=== PATIENT | male | born 1965 | race Caucasian/White ===

== ENCOUNTER 2019-03-27 18:14 | Emergency (ER) | payer BC, OTHER ==
[2019-03-27 19:25] VITALS: BP 160/101
[2019-03-27 19:49] LABS: BASO # 0.1 x10^3/uL (0.0-0.2); BASO % 1 % (0-3); EOS # 0.4 x10^3/uL (0.0-0.7); EOS % 5 % (0-3); HEMATOCRIT 44.2 % (39.0-53.0); HEMOGLOBIN 15.3 g/dL (13.0-17.5); LYMPH % 24 % (24-48); MEAN CORPUSCULAR HEMOGLOBIN 32 pg (25-35); MEAN CORPUSCULAR HGB CONC 35 g/dL (31-37); MEAN CORPUSCULAR VOLUME 92 fL (79-100); MONO # 0.7 x10^3/uL (0.0-1.1); MONO % 8 % (0-9); NEUT # 5.4 x10^3uL (1.8-7.7); NEUT % 63 % (31-73); PLATELET COUNT 208 x10^3/uL (140-400); RED BLOOD COUNT 4.79 x10^6/uL (4.30-5.70); WHITE BLOOD COUNT 8.6 x10^3/uL (4.0-11.0)
[2019-03-27 19:56] LABS: ALBUMIN 4.2 g/dL (3.4-5.0); ALBUMIN/GLOBULIN RATIO 1.1 (1.0-1.7); CALCIUM 9.7 mg/dL (8.5-10.1); CREATININE 1.2 mg/dL (0.7-1.3); GFR 63.6; POTASSIUM 3.5 mmol/L (3.5-5.1); TOTAL BILIRUBIN 0.4 mg/dL (0.2-1.0); TOTAL PROTEIN 7.9 g/dL (6.4-8.2)
--- NOTE | 2019-03-27 20:04 | PHYS DOC ---
Past History Past Medical History: High Cholesterol, Hypertension, Other Past Surgical History: No Surgical History Alcohol Use: None Drug Use: None Adult General Chief Complaint Chief Complaint: HYPERTENSION HPI HPI Patient is a 53-year-old male who presents tonight secondary to elevated blood pressure. Patient came home this evening felt a little nauseous so decided to check his blood pressure and it was elevated at 200 systolic. Patient denies any chest pain shortness of breath. He has had some nausea. He states he does occasionally have indigestion. He states his entire face felt numb as well. Patient does report that he had a full cardiac workup including what sounds like a cardiac CT as well as a stress test within the last few months all of which was normal. He is on blood pressure medicine that he states he takes regularly. His blood pressure medicine is metoprolol 50 mg once daily. At the time of this history patient has had no symptoms.[] Review of Systems Review of Systems Constitutional: Denies fever or chills [] Eyes: Denies change in visual acuity, redness, or eye pain [] HENT: Denies nasal congestion or sore throat [] Respiratory: Denies cough or shortness of breath [] Cardiovascular: No additional information not addressed in HPI [] GI: Occasional indigestion[] : Denies dysuria or hematuria [] Musculoskeletal: Denies back pain or joint pain [] Integument: Denies rash or skin lesions [] Neurologic: Facial numbness that has resolved[] Endocrine: Denies polyuria or polydipsia [] All other systems were reviewed and found to be within normal limits, except as documented in this note. Allergies Allergies Allergies Coded Allergies Type Severity Reaction Last Updated Verified No Known Drug Allergies 03/27/19 No Physical Exam Physical Exam Constitutional: Well developed, well nourished, no acute distress, non-toxic appearance. [] HENT: Normocephalic, atraumatic, bilateral external ears normal, oropharynx moist, no oral exudates, nose normal. [] Eyes: PERRLA, EOMI, conjunctiva normal, no discharge. [] Neck: Normal range of motion, no tenderness, supple, no stridor. [] Cardiovascular:Heart rate regular rhythm, no murmur [] Lungs & Thorax: Bilateral breath sounds clear to auscultation [] Abdomen: Bowel sounds normal, soft, no tenderness, no masses, no pulsatile masses. [] Skin: Warm, dry, no erythema, no rash. [] Back: No tenderness, no CVA tenderness. [] Extremities: No tenderness, no cyanosis, no clubbing, ROM intact, no edema. [] Neurologic: Alert and oriented X 3, normal motor function, normal sensory function, no focal deficits noted. [] Psychologic: Anxious[] Current Patient Data Vital Signs Vital Signs Date Time Temp Pulse Resp B/P (MAP) Pulse Ox O2 Delivery O2 Flow Rate FiO2 03/27/19 19:25 61 16 160/101 (120) 98 Room Air 03/27/19 18:28 98.1 Lab Results Laboratory Tests Test 03/27/19 19:18 White Blood Count 8.6 x10^3/uL (4.0-11.0) Red Blood Count 4.79 x10^6/uL (4.30-5.70) Hemoglobin 15.3 g/dL (13.0-17.5) Hematocrit 44.2 % (39.0-53.0) Mean Corpuscular Volume 92 fL (79-100) Mean Corpuscular Hemoglobin 32 pg (25-35) Mean Corpuscular Hemoglobin Concent 35 g/dL (31-37) Red Cell Distribution Width 13.0 % (11.5-14.5) Platelet Count 208 x10^3/uL (140-400) Neutrophils (%) (Auto) 63 % (31-73) Lymphocytes (%) (Auto) 24 % (24-48) Monocytes (%) (Auto) 8 % (0-9) Eosinophils (%) (Auto) 5 % (0-3) H Basophils (%) (Auto) 1 % (0-3) Neutrophils # (Auto) 5.4 x10^3uL (1.8-7.7) Lymphocytes # (Auto) 2.0 x10^3/uL (1.0-4.8) Monocytes # (Auto) 0.7 x10^3/uL (0.0-1.1) Eosinophils # (Auto) 0.4 x10^3/uL (0.0-0.7) Basophils # (Auto) 0.1 x10^3/uL (0.0-0.2) Sodium Level 136 mmol/L (136-145) Potassium Level 3.5 mmol/L (3.5-5.1) Chloride Level 98 mmol/L (98-107) Carbon Dioxide Level 25 mmol/L (21-32) Anion Gap 13 (6-14) Blood Urea Nitrogen 11 mg/dL (8-26) Creatinine 1.2 mg/dL (0.7-1.3) Estimated GFR (Cockcroft-Gault) 63.6 BUN/Creatinine Ratio 9 (6-20) Glucose Level 93 mg/dL (70-99) Calcium Level 9.7 mg/dL (8.5-10.1) Total Bilirubin 0.4 mg/dL (0.2-1.0) Aspartate Amino Transferase (AST) 42 U/L (15-37) H Alanine Aminotransferase (ALT) 55 U/L (16-63) Alkaline Phosphatase 59 U/L (46-116) Total Protein 7.9 g/dL (6.4-8.2) Albumin 4.2 g/dL (3.4-5.0) Albumin/Globulin Ratio 1.1 (1.0-1.7) Lipase 106 U/L (73-393) EKG EKG [EKG: Normal sinus rhythm rate of [address]-T changes] Radiology/Procedures Radiology/Procedures [] Course & Med Decision Making Course & Med Decision Making Pertinent Labs and Imaging studies reviewed. (See chart for details) [ED course: Evaluation reveals a 53-year-old male who presents with anxiety secondary to elevated blood pressure. Had a long discussion with the patient about home blood pressure readings and discussed when and how to take them. While his blood pressure is elevated tonight there is no indication to treat it. I do not believe any of his symptoms on anginal equivalent. I did discuss with the patient that he may need a different blood pressure regimen but that would not be something we would get into tonight.] Dragon Disclaimer Dragon Disclaimer This electronic medical record was generated, in whole or in part, using a voice recognition dictation system. Departure Departure: Impression: Primary Impression: Anxiety disorder due to known physiological condition Disposition: 01 HOME, SELF-CARE Condition: STABLE Referrals: [facility] (PCP) Patient Instructions: Hypertension Additional Instructions: Follow with her primary care physician this week for recheck. Return to the emergency department with any new or concerning symptoms MAEVE ALEXANDER DO Mar 27, 2019 20:04
--- NOTE | 2019-03-28 07:58 | EKG ---
[address] [address] Test Date: 2019-03-27 Test Time: 18:34:10 Pat Name: HÉCTOR STOKES Department: Room: Gender: M Chief Of Hospital Medicine: [place] : 1965 Requested By: MAEVE ALEXANDER Order Number: [id number] Reading MD: Measurements Intervals [place] Rate: 60 P: 45 [place]: 182 QRS: 0 QRSD: 104 T: 18 QT: 430 QTc: 430 Interpretive Statements SINUS RHYTHM LEFTWARD AXIS OTHERWISE NORMAL ECG RI6.01 No previous ECG available for comparison
== END 2019-03-27 20:16 | disposition home or self-care (01) ==
LOC: ER 18:14
DX: F41.8 Other specified anxiety disorders (principal); I10 Essential (primary) hypertension; E78.00 Pure hypercholesterolemia, unspecified
CPT/HCPCS: 36415; 80053; 83690; 84484; 85025; 93005; 99285